=== PATIENT | male | born 2000 | race Caucasian/White ===

== ENCOUNTER 2021-09-28 01:05 | Emergency (ER) | payer OTHER, BC ==
[~2021-09-28] VITALS: Ht 188 cm; Wt 88.6 kg
[2021-09-28 01:17] VITALS: BP 150/101; PULSE 91; TEMP 98.2
== END 2021-09-28 01:52 | disposition home or self-care (01) ==
LOC: COL.ER 01:05
DX: R51.9 Headache, unspecified (principal); V49.50XA Passenger injured in collision with unspecified motor vehicles in traffic accident, initial encounter; Y92.410 Unspecified street and highway as the place of occurrence of the external cause